=== PATIENT | male | born 1950 | race Caucasian/White ===

== ENCOUNTER 2016-11-15 11:13 | Inpatient (IN) | payer OTHER ==
[~2016-11-15] VITALS: Ht 170.2 cm; Wt 71.7 kg
--- NOTE | ~2016-11-15 | EKG ---
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 : 1950 Requested By: Danny Cast Order Number: [id number] MD: Keith Rodriguez Measurements Intervals [place] Rate: 57 P: 0 KS: 60 QRS: 8 QRSD: 122 T: 56 QT: 453 QTc: 441 Interpretive Statements Baseline artifact Supraventricular rhythm, probably sinus Right bundle branch block Compared to ECG 10/11/2016 17:50:39 Unable to compare due to baseline artifact right bundle branch block was present on both tracings Electronically Signed On 11-16-2016 9:07:24 [employer]ATCH[employer] by Keith Rodriguez [email or web address] <ELECTRONICALLY SIGNED> By: Keith Rodriguez MD, [facility] 11/16/16 0907 [id number] Keith Rodriguez MD, [facility] /EPI
--- NOTE | ~2016-11-15 | HC ---
[facility] [place] [address] CONSULTATION Name: CARSON GOODWIN Room #: 201-P ADM IN M.R.#: [id number] Admission: 11/15/16 Attend Phys: Dc Salcido MD Discharge: Date of : 50 Report #: [id number] THIS REPORT FOR: //name// CC: Dc Salcido REFERRING PHYSICIAN: Dr. Dc Salcido. REASON FOR REFERRAL: Acute respiratory failure. HISTORY OF PRESENT ILLNESS: The patient is a 66-year-old white male who presents to the Emergency Room with an apparent respiratory distress. A pulmonary consultation was requested. The patient was just hospitalized about a month ago for pneumonia. He has asthma. He is felt to have sleep disorders, which he has review of sleep study in the past. He was sent home with supplemental oxygen. The patient states that he was in his usual state of health until the family noticed that he was not his usual self. He was said to "goofy." Shortly thereafter, patient started developing increasing dyspnea and distress. He was sent to the Emergency Room. In the ER, the patient was found in acute respiratory distress. Arterial blood gas shows acute hypercapnic respiratory failure. The patient was placed on BiPAP. He was admitted. Otherwise the patient denies any recent febrile illness, night sweats or chills. PAST MEDICAL HISTORY: Is notable for long history of asthma, patient has never smoked, chronic hypoxic respiratory failure on supplemental O2, status post aortic valve replacement x 2 in 1997, 2004, gastroesophageal reflux disease, paroxysmal atrial fibrillation in 2005, presumed history of sleep apnea following his heart surgery, hypertension, paralyzed left hemidiaphragm. ALLERGIES: None to medications. HOME MEDICATIONS: Include he is on supplemental O2, allopurinol, Flomax, triamterene/hydrochlorothiazide, Pravastatin, losartan, levothyroxine, Coumadin, aspirin, diltiazem. PAST SURGICAL HISTORY: Should also include aortic valve replacement as mentioned above, tonsillectomy, and adenoidectomy. FAMILY HISTORY: Mother at the age of 42 due to breast cancer. SOCIAL HISTORY: The patient has never smoked, drinks socially. He is . [facility] [address] [place] [address] CONSULTATION Name: CARSON GOODWIN Room #: 201-P [facility] IN .R.#: [id number] Admission: 11/15/16 Attend Phys: Dc Salcido MD Discharge: Date of : 50 Report #: [id number] REVIEW OF SYSTEMS: As mentioned above, otherwise 10-point system review negative. PHYSICAL EXAMINATION: GENERAL: He is awake, alert, in moderate respiratory distress. VITAL SIGNS: Temperature is 96.5 degrees Fahrenheit, pulse is 71, respiratory rate is 25, blood pressure is 117/65 mmHg, saturation 100%. HEENT: Normocephalic, atraumatic. NECK: Supple without any lymphadenopathy or thyromegaly. CHEST: Breath sounds are good with mild expiratory wheezes. CARDIOVASCULAR: Regular rhythm and rate, no obvious murmurs or gallop. Pulses are 2+/4 positive bilaterally. ABDOMEN: Mildly obese, soft, nontender, no organomegaly or masses felt. GENITOURINARY: Deferred. RECTAL: Deferred. EXTREMITIES: There is no edema, cyanosis or clubbing. LABORATORY DATA: Chest x-ray shows small lung volumes bilaterally, cardiomegaly, mild pulmonary vascular markings, patchy bibasilar infiltrates. Arterial blood gas in the ER revealed pH 7.18, pCO2 110, pO2 of 234 on FiO2 100%. Sodium 134, potassium 4.5, chloride 196, CO2 is 41, BUN is 23, creatinine is 1.1. WBC 4300, hemoglobin 11.9, platelets are low at 71,000, no significant bandemia. IMPRESSION: 1. Acute on chronic hypoxic hypercapnic respiratory failure in this 66-year-old white male. He has a history of asthma. He is felt to have sleep apnea. His primary problem appears to be related to hypoventilation presumably related to sleep apnea. Exacerbation of asthma is likely contributing. Chest x-ray suggests possible pneumonia including possible aspiration. 2. Probable chronic hypercapnic hypoxic respiratory failure. The patient has been on supplemental O2 since last admission about a month ago. 3. Asthma exacerbation, lifelong, severity unknown. 4. Mild patchy bibasilar infiltrates. The patient is without fever, productive cough. Pneumonia is felt to be less likely though cannot rule out. Given the severity of respiratory distress, would empirically treat. 5. Sleep related breathing disorder. I strongly recommended a sleep study if one has not been performed. We will also obtain a baseline arterial blood gas when patient is improved. He may qualify for home ventilator such as Trilogy. 6. History of paralyzed left hemidiaphragm presumably either from his heart surgery or idiopathic. This is likely contributing to his "hypoventilation." 7. Status post aortic valve replacement x 2. 8. Hypertension. 9. Atrial fibrillation flutter. RECOMMENDATIONS: Agree with current treatment plans including bronchodilators, [facility] [address] [place] [address] CONSULTATION Name: CARSON GOODWIN Room #: 201-P [facility] IN .R.#: [id number] Admission: 11/15/16 Attend Phys: Dc Salcido MD Discharge: Date of : 50 Report #: [id number] corticosteroids. We would also start broad spectrum antibiotics. Continue noninvasive ventilation as tolerated. DVT and GI prophylaxis will be addressed. The patient will benefit from outpatient followup regarding sleep evaluation. Thank you for this consultation. <ELECTRONICALLY SIGNED> By: Dion Echeverria MD 11/19/16 1433 [id number] Dion Echeverria MD /nt
[~2016-11-15 11:13] MED LIST: ALLOPURINOL 10100 M1 PO; ASPIR 8181 MG PO; CARDIZEM CD240 MG PO; CEFUROXIME250 MG PO; COUMADIN 3 MG TA3 MG PO; COZAAR 50 MG TA50 M2 PO; FLOMAX0.4 MG PO; LEVOTHYROXINE0.05 MG PO; PRAVACHOL40 MG PO; PREDNISONE 10 M10 MG PO; TRIAMTERENE/HCT1 CA1 PO
[2016-11-15 11:28] LABS: ABG SAMPLE TYPE ARTERIAL; BE(vivo) 8.5 mmol/L (-2 to +3); HCO3 40.9 mmol/L (22.0-26.0); LACTATE 0.67 mmol/L (0.5-2.0); O2(CT) 18.6 mL/dL (15.0-23.0); O2Hb 97.4 % (92.0-98.0); PO2 234.7 mmHg (80.0-100.0); sO2 99.2 % (92.0-98.0); tCO2 44.3 mmol/L (24.0-30.0)
[2016-11-15 11:29] LABS: Pressure Support 6 cm H20; STICK SITE R.RADIAL; pH 7.188 (7.360-7.450)
[2016-11-15 11:43] LABS: HEMATOCRIT 37.4 % (42.0-52.0); HEMOGLOBIN 11.9 gm/dL (14.0-18.0); MCHC 31.9 g/dL (28.0-37.0); MCV 109.4 fL (80.0-100.0); RBC 3.42 mil/uL (4.50-6.00); RDW 16.8 % (10.5-14.5); WBC 4.3 thou/uL (4.0-11.0)
[2016-11-15 11:46] LABS: MANUAL DIFF YES
[2016-11-15 11:55] LABS: ANION GAP < 0 mmol/L (7-16); BUN 23 mg/dL (7-18); CALCIUM 8.7 mg/dL (8.5-10.1); CHLORIDE 96 mmol/L (98-107); CO2 41 mmol/L (21-32); CREATININE 1.1 mg/dL (0.6-1.3); GLUCOSE 122 mg/dL (70-99); POTASSIUM 4.5 mmol/L (3.5-5.1); SODIUM 134 mmol/L (136-145)
[2016-11-15 11:56] LABS: PROTIME 20.7 Seconds (9.3-11.4)
[2016-11-15 12:07] LABS: ABSOLUTE NEUTROPHILS 3.5 thou/uL (1.4-8.2); ATYPICAL LYMPHS 2 %; NT-PRO BRAIN NAT PEPTIDE 626 pg/mL (<300); TOTAL CELL COUNT 100; TROPONIN-I < 0.04 ng/mL (<0.04-0.07)
[2016-11-15 12:09] LABS: ANISOCYTOSIS 1+
[2016-11-15 12:11] LABS: MACROCYTES SLIGHT; PLATELET COUNT 71 thou/uL (150-400); PLATELET ESTIMATE DECREASED
[2016-11-15 17:14] LABS: ABG SAMPLE TYPE ARTERIAL; BE(vivo) 10.1 mmol/L (-2 to +3); HCO3 38.9 mmol/L (22.0-26.0); LACTATE 0.75 mmol/L (0.5-2.0); O2(CT) 16.7 mL/dL (15.0-23.0); O2Hb 96.4 % (92.0-98.0); PO2 100.2 mmHg (80.0-100.0); sO2 96.8 % (92.0-98.0); tCO2 41.2 mmol/L (24.0-30.0)
[2016-11-15 17:15] LABS: PCO2 76.5 mmHg (35.0-45.0); Pressure Support 12 cm H20; STICK SITE R.RADIAL; pH 7.324 (7.360-7.450)
[2016-11-15 19:44] LABS: CALCIUM 8.7 mg/dL (8.5-10.1); CREATININE 1.2 mg/dL (0.6-1.3); MAGNESIUM 2.2 mg/dL (1.8-2.4); POTASSIUM 4.6 mmol/L (3.5-5.1)
[2016-11-16 03:37] LABS: HEMATOCRIT 35.5 % (42.0-52.0); HEMOGLOBIN 11.8 gm/dL (14.0-18.0); MCH 35.1 pg (26.0-34.0); MCHC 33.3 g/dL (28.0-37.0); MCV 105.6 fL (80.0-100.0); RBC 3.36 mil/uL (4.50-6.00); RDW 16.1 % (10.5-14.5); WBC 3.3 thou/uL (4.0-11.0)
[2016-11-16 03:48] LABS: CALCIUM 8.8 mg/dL (8.5-10.1); CREATININE 0.8 mg/dL (0.6-1.3); POTASSIUM 4.4 mmol/L (3.5-5.1)
[2016-11-17 03:20] LABS: HEMOGLOBIN 11.4 gm/dL (14.0-18.0); MCH 34.9 pg (26.0-34.0); MCHC 33.5 g/dL (28.0-37.0); MCV 104.2 fL (80.0-100.0); RBC 3.26 mil/uL (4.50-6.00); RDW 16.7 % (10.5-14.5); WBC 5.6 thou/uL (4.0-11.0)
[2016-11-17 03:31] LABS: INR 1.8; PROTIME 18.3 Seconds (9.3-11.4)
[2016-11-17 03:32] LABS: CALCIUM 8.4 mg/dL (8.5-10.1); CREATININE 0.9 mg/dL (0.6-1.3)
[2016-11-17 03:35] LABS: POTASSIUM 3.3 mmol/L (3.5-5.1)
[2016-11-17 07:56] LABS: ALBUMIN 3.1 g/dL (3.4-5.0); PHOSPHORUS 2.2 mg/dL (2.5-4.9)
[2016-11-18 03:32] LABS: HEMATOCRIT 33.8 % (42.0-52.0); HEMOGLOBIN 11.4 gm/dL (14.0-18.0); MCH 35.1 pg (26.0-34.0); MCHC 33.7 g/dL (28.0-37.0); MCV 104.3 fL (80.0-100.0); RBC 3.24 mil/uL (4.50-6.00); WBC 8.7 thou/uL (4.0-11.0)
[2016-11-18 03:42] LABS: INR 1.7; PROTIME 18.1 Seconds (9.3-11.4)
[2016-11-18 11:00] LABS: ABG SAMPLE TYPE ARTERIAL; HCO3 31.4 mmol/L (22.0-26.0); LACTATE 1.83 mmol/L (0.5-2.0); O2(CT) 16.7 mL/dL (15.0-23.0); PO2 60.4 mmHg (80.0-100.0); STICK SITE R.RADIAL; pH 7.472 (7.360-7.450); sO2 92.5 % (92.0-98.0); tCO2 32.8 mmol/L (24.0-30.0)
[2016-11-19 03:53] LABS: INR 1.9; PROTIME 19.7 Seconds (9.3-11.4)
[2016-11-19 04:00] LABS: ALBUMIN 2.8 g/dL (3.4-5.0); CALCIUM 7.9 mg/dL (8.5-10.1); POTASSIUM 3.8 mmol/L (3.5-5.1)
[2016-11-19 04:34] LABS: HEMATOCRIT 33.2 % (42.0-52.0); HEMOGLOBIN 11.2 gm/dL (14.0-18.0); MCH 35.3 pg (26.0-34.0); MCHC 33.7 g/dL (28.0-37.0); MCV 104.9 fL (80.0-100.0); RBC 3.16 mil/uL (4.50-6.00); RDW 16.8 % (10.5-14.5); WBC 6.9 thou/uL (4.0-11.0)
[2016-11-19 05:46] LABS: ABG SAMPLE TYPE ARTERIAL; STICK SITE R.RADIAL
[2016-11-19 05:47] LABS: BE(vivo) 6.5 mmol/L (-2 to +3); HCO3 32.9 mmol/L (22.0-26.0); LACTATE 0.99 mmol/L (0.5-2.0); O2Hb 92.9 % (92.0-98.0); PCO2 55.7 mmHg (35.0-45.0); PO2 70.2 mmHg (80.0-100.0); pH 7.389 (7.360-7.450); tCO2 34.6 mmol/L (24.0-30.0)
[2016-11-19 05:48] LABS: O2(CT) 15.8 mL/dL (15.0-23.0); sO2 93.6 % (92.0-98.0)
[2016-11-19 13:18] LABS: ALBUMIN 2.9 g/dL (3.4-5.0); CALCIUM 7.9 mg/dL (8.5-10.1); POTASSIUM 3.8 mmol/L (3.5-5.1); TOTAL BILIRUBIN 0.7 mg/dL (<0.1-1.0); TOTAL PROTEIN 5.4 g/dL (6.4-8.2)
[2016-11-20] MEDS ORDERED: AUGMENTIN 875875 MG PO (07:38)
== END 2016-11-20 17:48 | disposition home or self-care (01) | DRG 193 ==
LOC: ER 11:13 → ICU 12:57 → EROBS 12:57 → ICU 14:45 → 2N 11-16 16:30
PROVIDERS: Emergency Medicine; Family Medicine; Hospitalist; Internal Medicine Pulmonary Disease
PROC: 5A09357 Assistance with Respiratory Ventilation, Less than 24 Consecutive Hours, Continuous Positive Airway Pressure (ICD-10-PCS; principal; 2016-11-15)
DX: J12.9 Viral pneumonia, unspecified (principal); J96.21 Acute and chronic respiratory failure with hypoxia; J96.22 Acute and chronic respiratory failure with hypercapnia; I48.92 Unspecified atrial flutter; J98.11 Atelectasis; D69.6 Thrombocytopenia, unspecified; E78.5 Hyperlipidemia, unspecified; K74.60 Unspecified cirrhosis of liver; I10 Essential (primary) hypertension; N40.0 Benign prostatic hyperplasia without lower urinary tract symptoms; K21.9 Gastro-esophageal reflux disease without esophagitis; F17.220 Nicotine dependence, chewing tobacco, uncomplicated; I48.0 Paroxysmal atrial fibrillation; G47.33 Obstructive sleep apnea (adult) (pediatric); I25.10 Atherosclerotic heart disease of native coronary artery without angina pectoris; Z95.1 Presence of aortocoronary bypass graft; Z79.899 Other long term (current) drug therapy; Z79.82 Long term (current) use of aspirin; Z95.2 Presence of prosthetic heart valve; Z90.49 Acquired absence of other specified parts of digestive tract; Z80.3 Family history of malignant neoplasm of breast
CPT/HCPCS: 10078; 10081

== ENCOUNTER → 2017-01-23 | Outpatient (CLI) | payer OTHER ==
[~2017-01-23] MED LIST changes: +AUGMENTIN 875875 MG PO
[2017-01-23 15:01] LABS: ABG SAMPLE TYPE ARTERIAL; BE(vivo) -0.7 mmol/L (-2 to +3); HCO3 23.3 mmol/L (22.0-26.0); LACTATE 1.09 mmol/L (0.5-2.0); O2(CT) 14.6 mL/dL (15.0-23.0); O2Hb 93.1 % (92.0-98.0); PCO2 36.3 mmHg (35.0-45.0); PO2 70.3 mmHg (80.0-100.0); STICK SITE R.RADIAL; pH 7.426 (7.360-7.450); sO2 94.6 % (92.0-98.0); tCO2 24.5 mmol/L (24.0-30.0)
== END ==
LOC: PUL 14:37
PROVIDERS: Internal Medicine Pulmonary Disease
DX: J96.12 Chronic respiratory failure with hypercapnia (principal)

== ENCOUNTER → 2018-01-13 | Outpatient (CLI) | payer OTHER | LOC: RAD 12:17 | DX: J45.50 Severe persistent asthma, uncomplicated (principal); I25.10 Atherosclerotic heart disease of native coronary artery without angina pectoris ==

== ENCOUNTER → 2019-11-16 | Outpatient (CLI) | payer OTHER | LOC: SJCVC 09:46 | DX: I45.10 Unspecified right bundle-branch block (principal); R94.31 Abnormal electrocardiogram [ECG] [EKG]; I48.91 Unspecified atrial fibrillation; I25.119 Atherosclerotic heart disease of native coronary artery with unspecified angina pectoris; I10 Essential (primary) hypertension; J44.9 Chronic obstructive pulmonary disease, unspecified; E78.5 Hyperlipidemia, unspecified; Z72.0 Tobacco use; Z95.2 Presence of prosthetic heart valve; Z79.899 Other long term (current) drug therapy ==

== ENCOUNTER 2020-12-29 15:15 | Inpatient (IN) | payer OTHER ==
[~2020-12-29] VITALS: Ht 152.4 cm; Wt 95.3 kg
[2020-12-29 15:23] VITALS: BP 116/65
[2020-12-29 15:51] LABS: ABSOLUTE NEUTROPHILS 13.4 thou/uL (1.4-8.2); BASOPHILS 0.2 % (0.0-2.0); EOSINOPHILS 0.1 % (0.0-3.0); HEMATOCRIT 41.5 % (42.0-52.0); HEMOGLOBIN 13.3 gm/dL (14.0-18.0); LYMPHOCYTES 1.1 % (24.0-44.0); MCH 34.1 pg (26.0-34.0); MCHC 32.1 g/dL (28.0-37.0); MCV 106.2 fL (80.0-100.0); MONOCYTES 6.3 % (1.0-8.0); POLYS 92.3 % (36.0-66.0); RBC 3.91 mil/uL (4.50-6.00); RDW 15.2 % (10.5-14.5); WBC 14.5 thou/uL (4.0-11.0)
[2020-12-29 15:53] LABS: URINE BILIRUBIN 2+ (Negative); URINE BLOOD 1+ (Negative); URINE CLARITY CLEAR; URINE COLOR YELLOW; URINE GLUCOSE-RANDOM* NEGATIVE (Negative); URINE KETONES NEGATIVE (Negative); URINE LEUKOCYTES-REFLEX NEGATIVE (Negative); URINE NITRITE-REFLEX NEGATIVE (Negative); URINE PROTEIN (DIPSTICK) 3+ (Negative); URINE SPECIFIC GRAVITY >= 1.030 (1.005-1.035)
[2020-12-29 15:55] LABS: CALCIUM 9.4 mg/dL (8.5-10.1); CREATININE 1.3 mg/dL (0.7-1.3); POTASSIUM 4.3 mmol/L (3.5-5.1)
[2020-12-29 15:58] LABS: ICTOTEST (BILI CONFIRMATORY) Positive (Negative)
[2020-12-29 16:00] LABS: ALBUMIN 4.2 g/dL (3.4-5.0); DIRECT BILIRUBIN 1.3 mg/dL (<0.1-0.2); TOTAL BILIRUBIN 2.5 mg/dL (0.2-1.0); TOTAL PROTEIN 7.4 g/dL (6.4-8.2)
[2020-12-29 16:04] LABS: BE(vivo) -7.4 mmol/L (-2 to +3); HCO3 22.9 mmol/L (22.0-26.0); PCO2 69.9 mmHg (35.0-45.0); PO2 133.3 mmHg (80.0-100.0); pH 7.133 (7.360-7.450); sO2 97.6 % (92.0-98.0)
[2020-12-29 16:10] LABS: CRYSTALS None Seen /LPF (None Seen); HYALINE CASTS 4-10 Moderate /LPF (None Seen); SQUAMOUS 0-3 Few /LPF (0-3); URINE RBC 0-2 Rare /HPF (0-2); URINE WBC-REFLEX 0-5 Rare /HPF (0-5)
[2020-12-29 16:11] LABS: CELLULAR CASTS 0-3 Few /LPF (None Seen); COARSE GRANULAR CASTS 0-3 Few /LPF (None Seen)
[2020-12-29 16:30] LABS: APTT 53.8 Seconds (24.5-32.8); INR 3.39; PROTIME 34.9 Seconds (9.3-11.4)
[2020-12-29 16:35] LABS: PLATELET COUNT 77 thou/uL (150-400)
[2020-12-29 16:36] LABS: TEARDROPS 1+
[2020-12-29 17:56] LABS: BE(vivo) -7.7 mmol/L (-2 to +3); HCO3 19.7 mmol/L (22.0-26.0); PCO2 47.6 mmHg (35.0-45.0); PO2 89.5 mmHg (80.0-100.0); pH 7.235 (7.360-7.450); sO2 95.3 % (92.0-98.0)
[2020-12-29] MEDS ORDERED: FLOMAX0.4 MG PO (17:58)
[2020-12-29 19:54] VITALS: BP 123/75
[2020-12-29 21:23] VITALS: BP 121/77
[2020-12-29 23:39] VITALS: BP 129/84
[2020-12-30 03:50] VITALS: BP 120/80
[2020-12-30 04:09] LABS: HEMOGLOBIN 11.7 gm/dL (14.0-18.0); MCH 35.3 pg (26.0-34.0); MCHC 33.5 g/dL (28.0-37.0); MCV 105.3 fL (80.0-100.0); RBC 3.33 mil/uL (4.50-6.00); RDW 14.9 % (10.5-14.5); WBC 12.4 thou/uL (4.0-11.0)
[2020-12-30 04:53] LABS: ALBUMIN 3.4 g/dL (3.4-5.0); CALCIUM 8.7 mg/dL (8.5-10.1); CREATININE 1.1 mg/dL (0.7-1.3); POTASSIUM 4.3 mmol/L (3.5-5.1); TOTAL BILIRUBIN 1.4 mg/dL (0.2-1.0); TOTAL PROTEIN 6.4 g/dL (6.4-8.2)
--- NOTE | 2020-12-30 05:07 | NUR ---
ADMIT PT ADMITTED TO ROOM 354 FOR PNEUMONIA SOB, CAME TO FLOOR WITH BIPAP @70% TELE INTACT VSS, HAS LARGE BRUISE FROM FALL A FEW DAYS AGO AND SOME FRACTURED RIBS, OXYCODONE GIVEN FOR PAIN PT ANSWERED ADMISSION QUESTIONS CONTINUE POC.
[2020-12-30 07:45] VITALS: BP 114/61
[2020-12-30 11:27] VITALS: BP 138/69
--- NOTE | 2020-12-30 15:58 | NUR ---
INITIAL ASSESSMENT: SW reviewed chart and spoke with nursing. Pt was admitted from home due to pneumonia. Pt placed in Enhanced Isolation to r/o COVID. Pt has had two negative COVID tests. Pt is on 2L of O2 and IV abx. SW spoke with pt via phone. Introduced role of SW. Pt is alert/orientated x 4. Pt reports he lives at home. Prior to admission, pt was independent with ADLs. No use of DME. Pt has used [facility] in the past for home O2. Pt states he had the home O2 temporarily, but [employer] has picked up the equipment. No hx of services or post-acute placement. Pt's PCP is Dr. Salcido. No weekend discharge planned. SW is following to assist as needed with discharge planning.
--- NOTE | 2020-12-30 19:38 | NUR ---
RN ASSUMED PT'S CARE AT 0700AM, PT IS A&OX3 , PT IS OFF BIPAP AT DAY SHIFT , PT IS ON O2 2-4L/MIN/NC, PT'S VS ARE STABLE,BUT PT HAS SOB WITH ACTIVITIES, PT IS CONTINUING IV ABX, AND PAIN MANAGEMENT.
--- NOTE | 2020-12-30 19:41 | NUR ---
PT'S HAS NEGATIVE COVID TEST AT 12/29/20 AND 12/30/20, PT'S COVID ISOLATION HAS DC PER ORDER,
[2020-12-30 20:01] VITALS: BP 99/64
[2020-12-31 00:15] VITALS: BP 116/63
--- NOTE | 2020-12-31 03:40 | NUR ---
Slept fair during the night.Maintaining O2 sat in the upper 90's on BIPAP at 50%. Shortness of breath with exertion. Denies need for pain med at this time. Bed alarm on ,SCD's in place.
[2020-12-31 04:16] VITALS: BP 142/73
[2020-12-31 07:17] VITALS: BP 131/68
[2020-12-31 10:26] LABS: HEMATOCRIT 36.9 % (42.0-52.0); HEMOGLOBIN 12.2 gm/dL (14.0-18.0); MCH 34.7 pg (26.0-34.0); MCV 105.1 fL (80.0-100.0); RBC 3.51 mil/uL (4.50-6.00); RDW 14.7 % (10.5-14.5); WBC 11.7 thou/uL (4.0-11.0)
[2020-12-31 10:33] LABS: CALCIUM 9.1 mg/dL (8.5-10.1); CREATININE 1.1 mg/dL (0.7-1.3); POTASSIUM 3.8 mmol/L (3.5-5.1)
[2020-12-31 11:08] VITALS: BP 116/61
[2020-12-31 11:23] LABS: INR 2.4; PROTIME 25.1 Seconds (9.3-11.4)
[2020-12-31 15:23] VITALS: BP 121/68
--- NOTE | 2020-12-31 17:34 | NUR ---
RN ASSUMED PT'S CARE AT 0700AM, PT IS A&OX3, PT IS ON O2 3L/MIN/NC , PT'S VS ARE STABLE, PT STILL HAS SOB WITH ACTIVITIES, PT IS CONTINUING IV ABX, PT GETS UP TO CHAIR AND BATH ROOM WITH ASSIST,
[2020-12-31 19:54] VITALS: BP 123/65
--- NOTE | 2020-12-31 21:27 | NUR ---
PT ALERT AND ORIENTED X4. VSS AFEBRILE SAT 93% ON 3LNC. BIPAP APPLIED AT HS. DEINIED PAIN. NO C/O SOA PRESENTLY. LUNGS SOUND COARSE WITH WHEZZES, TX PER RT. WILL CONTINUE TO MONITOR PT FOR CHANGES. BED DOWN . CALL LIGHT IN REACH. BED ALARM ON.
[2021-01-01 03:04] VITALS: BP 112/67
--- NOTE | 2021-01-01 06:39 | NUR ---
Pt c/o rib pain while coughing 5/10. Medicated with 1 oxycodone.
[2021-01-01 07:31] VITALS: BP 111/70
[2021-01-01 10:10] LABS: HEMATOCRIT 39.6 % (42.0-52.0); HEMOGLOBIN 12.8 gm/dL (14.0-18.0); MCH 34.1 pg (26.0-34.0); MCHC 32.4 g/dL (28.0-37.0); MCV 105.1 fL (80.0-100.0); RBC 3.77 mil/uL (4.50-6.00); RDW 14.7 % (10.5-14.5); WBC 16.7 thou/uL (4.0-11.0)
[2021-01-01 10:15] LABS: CALCIUM 9.2 mg/dL (8.5-10.1); POTASSIUM 3.8 mmol/L (3.5-5.1)
[2021-01-01 11:13] VITALS: BP 116/67
[2021-01-01 16:14] VITALS: BP 120/69
--- NOTE | 2021-01-01 19:18 | NUR ---
RN ASSUMED PT'S CARE AT 0700AM, PT IS A&OX3, PT IS ON O2 3L/MIN/NC, PT'S SOB AND COUGHING HAVE IMPROVED BY NEW MEDICATIONS, PT'S VS ARE STABLE AT BEKAH SHIFT,
[2021-01-01 19:28] VITALS: BP 130/76
--- NOTE | 2021-01-01 21:47 | NUR ---
PT ALERT AND ORIENTED X4. [place]. VSS AFEBRILE. C/O PAIN TO RIGHT RIB AREA FROM FALL EXACERBATED BY COUGHING. MEDICATED WITH 1 OXYCODONE. PT IS RESTING QUIETLY WITH BIPAP ON ATTEMPTING TO GET TO SLEEP.WILL CONTINUE TO MONITOR PT FOR CHANGES.
[2021-01-02 03:54] VITALS: BP 107/61
--- NOTE | 2021-01-02 05:03 | NUR ---
PT RESTING QUIETLY,. HE DENIED PAIN PRESENTLY. BIPAP ON. LUNGS SOUND SLIGHTLY COARSE AND DIMINISHED.
[2021-01-02 05:51] LABS: ABSOLUTE NEUTROPHILS 6.5 thou/uL (1.4-8.2); BASOPHILS 0.3 % (0.0-2.0); HEMATOCRIT 35.3 % (42.0-52.0); HEMOGLOBIN 11.7 gm/dL (14.0-18.0); LYMPHOCYTES 3.8 % (24.0-44.0); MCH 34.6 pg (26.0-34.0); MCHC 33.1 g/dL (28.0-37.0); MCV 104.6 fL (80.0-100.0); MONOCYTES 1.7 % (1.0-8.0); PLATELET COUNT 92 thou/uL (150-400); POLYS 94.2 % (36.0-66.0); RBC 3.38 mil/uL (4.50-6.00); RDW 14.5 % (10.5-14.5); WBC 6.9 thou/uL (4.0-11.0)
[2021-01-02 06:33] LABS: MACROCYTES 1+; PLATELET ESTIMATE DECREASED
[2021-01-02 08:01] VITALS: BP 98/65
--- NOTE | 2021-01-02 15:42 | NUR ---
SW reviewed chart and spoke with nursing. PT/OT ordered today to evaluate pt for discharge needs. Pt remains on 3.5L of O2. Pt is on IV abx and IV steroids. Plan is for pt to discharge home when medically stable. MALIK is following to assist as needed with discharge planning.
--- NOTE | 2021-01-02 19:29 | NUR ---
RN ASSUMED PT'S CARE AT 0700AM, PT IS A&OX3, PT IS CONTINUING IV ABX , PT IS ON O2 3L/MIN/NC, PT'S SOB AND COUGHING HAVE IMPROVED, PT HAS WORKED WITH PT/OT TODAY.
[2021-01-02 19:52] VITALS: BP 132/80
[2021-01-03 03:34] VITALS: BP 136/72
--- NOTE | 2021-01-03 03:58 | NUR ---
WEARING BIPAP TONIGHT. HIS PAIN HAS BEEN UNER CONTROL. RESTING QUIETLY. CAREPLAN REVIEWED. NO DISCHARGE CONCERNS VOICED.
[2021-01-03 07:27] VITALS: BP 112/55
[2021-01-03 09:24] LABS: HEMATOCRIT 37.6 % (42.0-52.0); HEMOGLOBIN 12.3 gm/dL (14.0-18.0); MCH 34.2 pg (26.0-34.0); MCHC 32.6 g/dL (28.0-37.0); MCV 104.8 fL (80.0-100.0); RBC 3.59 mil/uL (4.50-6.00); RDW 14.4 % (10.5-14.5); WBC 8.6 thou/uL (4.0-11.0)
[2021-01-03 09:26] LABS: CALCIUM 8.8 mg/dL (8.5-10.1); CREATININE 1.1 mg/dL (0.7-1.3); POTASSIUM 4.1 mmol/L (3.5-5.1)
[2021-01-03 09:28] LABS: INR 3.22; PROTIME 33.2 Seconds (10.5-12.1)
[2021-01-03 10:56] VITALS: BP 130/82
--- NOTE | 2021-01-03 14:32 | NUR ---
MALIK reviewed chart and spoke with nursing. Pt is progressing towards goals for discharge. Discharge home is anticipated in 1-2 days. Pt is on 3.5L of O2. Pt is on IV abx and IV steroids. MALIK met with pt at bedside to discuss discharge plan. Pt states he will most likely need to discharge home with home O2. Pt declines needing HH at this time. Pt has used [facility] in the past, and would like to use them again. MALIK faxed info to [facility] and spoke with intake. Will need rest/exercise oximetry ordered to determine home O2 needs. Pt states his has not been feeling well. Pt may need transportation home. MALIK is following to assist as needed with discharge planning.
[2021-01-03 15:48] VITALS: BP 126/76
[2021-01-03 19:50] VITALS: BP 134/56
[2021-01-04 04:45] VITALS: BP 143/72
--- NOTE | 2021-01-04 04:46 | NUR ---
WEARING THE BIPAP TONIGHT. RESTING QUIETLY. STEADY, STRONG GAIT. STATED THAT HE IS FEELING MUCH MORE STRONG. NO DISCHARGE CONCERNS VOICED.
[2021-01-04 07:21] VITALS: BP 135/72
[2021-01-04] MEDS ORDERED: CEFDINIR300 MG PO (08:02)
[2021-01-04] MEDS ORDERED: PREDNISONE 10 M10 MG PO (08:03)
[2021-01-04] MEDS ORDERED: PROMETH-CODEIN 65 ML PO (08:04)
[2021-01-04 11:48] VITALS: BP 135/72
--- NOTE | 2021-01-04 12:06 | NUR ---
per oximetry results, pt is not in need of home O2. pt and [facility], both, notified by cm. cm s/w pt re: hh options. pt has no preference. cm faxed orders to [facility] [phone].
--- NOTE | 2021-01-04 12:50 | NUR ---
cm sent orders to [facility]. [phone].
--- NOTE | 2021-01-04 15:02 | NUR ---
[facility]ized [facility] - out of network w/insurance lft vm for [place]an with [facility] [phone]. faxed referral to [facility] [phone].
== END 2021-01-04 14:25 | disposition home health service (06) | DRG 871 ==
LOC: ER 15:15 → EROBS 16:56 → 3W 16:56
PROVIDERS: Nurse Practitioner; Specialist; ADMIT Family Medicine; ATTEND Family Medicine
PROC: 5A09357 Assistance with Respiratory Ventilation, Less than 24 Consecutive Hours, Continuous Positive Airway Pressure (ICD-10-PCS; principal; 2020-12-29)
PROC: 5A09357 Assistance with Respiratory Ventilation, Less than 24 Consecutive Hours, Continuous Positive Airway Pressure (ICD-10-PCS; 2020-12-30)
PROC: 5A09357 Assistance with Respiratory Ventilation, Less than 24 Consecutive Hours, Continuous Positive Airway Pressure (ICD-10-PCS; 2020-12-31)
PROC: 5A09357 Assistance with Respiratory Ventilation, Less than 24 Consecutive Hours, Continuous Positive Airway Pressure (ICD-10-PCS; 2021-01-02)
PROC: 5A09357 Assistance with Respiratory Ventilation, Less than 24 Consecutive Hours, Continuous Positive Airway Pressure (ICD-10-PCS; 2021-01-03)
PROC: 5A09357 Assistance with Respiratory Ventilation, Less than 24 Consecutive Hours, Continuous Positive Airway Pressure (ICD-10-PCS; 2021-01-04)
DX: A41.9 Sepsis, unspecified organism (principal); J18.9 Pneumonia, unspecified organism; J96.01 Acute respiratory failure with hypoxia; S22.42XA Multiple fractures of ribs, left side, initial encounter for closed fracture; J44.0 Chronic obstructive pulmonary disease with (acute) lower respiratory infection; J44.1 Chronic obstructive pulmonary disease with (acute) exacerbation; Z20.822 Contact with and (suspected) exposure to COVID-19; I48.91 Unspecified atrial fibrillation; E78.00 Pure hypercholesterolemia, unspecified; K21.9 Gastro-esophageal reflux disease without esophagitis; F17.220 Nicotine dependence, chewing tobacco, uncomplicated; W18.39XA Other fall on same level, initial encounter; Y93.89 Activity, other specified; Y92.89 Other specified places as the place of occurrence of the external cause; Z95.2 Presence of prosthetic heart valve; Y99.8 Other external cause status
CPT/HCPCS: 10779; 10879

== ENCOUNTER 2021-04-06 09:32 | Emergency (ER) | payer OTHER ==
[~2021-04-06] VITALS: Ht 170.2 cm; Wt 89.8 kg
[~2021-04-06 09:32] MED LIST changes: +CEFDINIR300 MG PO; +PROMETH-CODEIN 65 ML PO
[2021-04-06] MEDS ORDERED: PROAIR HFA8.5 GM INH (09:46)
[2021-04-06] MEDS ORDERED: PERCOCET 10-321 EACH PO (09:46)
[2021-04-06] MEDS ORDERED: WARFARIN SODIUM4 MG PO (09:46)
[2021-04-06] MEDS ORDERED: JANTOVEN6 MG PO (09:47)
[2021-04-06 10:07] LABS: BASOPHILS 0.4 % (0.0-2.0); EOSINOPHILS 1.1 % (0.0-3.0); HEMATOCRIT 30.7 % (42.0-52.0); HEMOGLOBIN 10.5 gm/dL (14.0-18.0); LYMPHOCYTES 6.6 % (24.0-44.0); MCH 35.8 pg (26.0-34.0); MCV 105.2 fL (80.0-100.0); MONOCYTES 9.8 % (1.0-8.0); PLATELET COUNT 66 thou/uL (150-400); POLYS 82.1 % (36.0-66.0); RBC 2.92 mil/uL (4.50-6.00); RDW 14.3 % (10.5-14.5); WBC 6.1 thou/uL (4.0-11.0)
[2021-04-06 10:21] LABS: ANION GAP 10 mmol/L (7-16); BUN 16 mg/dL (7-18); CALCIUM 8.7 mg/dL (8.5-10.1); CHLORIDE 103 mmol/L (98-107); CO2 24 mmol/L (21-32); CREATININE 0.9 mg/dL (0.7-1.3); GLUCOSE 101 mg/dL (74-106); SODIUM 137 mmol/L (136-145)
[2021-04-06 10:29] LABS: INR 8.99
[2021-04-06 10:30] LABS: APTT 56.9 Seconds (24.5-32.8); PROTIME 88.3 Seconds (10.5-12.1)
[2021-04-06 10:31] LABS: ALBUMIN 3.8 g/dL (3.4-5.0); SGOT 93 U/L (15-37); SGPT 43 U/L (16-63); TOTAL BILIRUBIN 2.5 mg/dL (0.2-1.0); TOTAL PROTEIN 6.3 g/dL (6.4-8.2); TROPONIN-I <0.06 ng/mL (<0.06)
[2021-04-06 12:23] VITALS: BP 126/87
--- NOTE | 2021-04-06 13:07 | EKG ---
[place] [address] [employer] [facility] [facility] [place] [address] ELECTROCARDIOGRAM REPORT Name: CARSON GOODWIN [id number] Admission: 04/06/21 Attend Phys: Discharge: 04/06/21 Date of : 50 Report #: [id number] [facility] ED Test Date: 2021-04-06 Test Time: 10:13:33 Pat Name: CARSON GOODWIN Department: Room: Gender: M Cook Fruit: SERENITY : 1950 Requested By: Geovanny Arevalo Order Number: [id number] MD: Bay Lindsay Measurements Intervals [place] Rate: 92 P: IN: QRS: 40 QRSD: 141 T: 27 QT: 387 QTc: 479 Interpretive Statements Atrial fibrillation Right bundle branch block Baseline wander in lead(s) V1,V2 Compared to ECG 11/15/2016 11:17:59 Supraventricular rhythm no longer present Electronically Signed On 04-06-2021 13:07:02 CDT by Bay Lindsay [email or web address] <ELECTRONICALLY SIGNED> By: Bay Lindsay MD, [facility] 04/06/21 1307 D: [phone] Bay Lindsay MD, [facility] /EPI
== END 2021-04-06 12:25 | disposition home or self-care (01) ==
LOC: ER 09:32
PROVIDERS: Emergency Medicine
DX: S22.32XA Fracture of one rib, left side, initial encounter for closed fracture (principal); E78.00 Pure hypercholesterolemia, unspecified; R79.1 Abnormal coagulation profile; K21.9 Gastro-esophageal reflux disease without esophagitis; J45.909 Unspecified asthma, uncomplicated; Z79.2 Long term (current) use of antibiotics; Z79.82 Long term (current) use of aspirin; Z72.0 Tobacco use; W19.XXXA Unspecified fall, initial encounter; Y93.89 Activity, other specified; Y92.89 Other specified places as the place of occurrence of the external cause; Y99.8 Other external cause status